=== PATIENT | female | born 1990 | race Caucasian/White ===

== ENCOUNTER 2018-12-14 17:24 | Emergency (ER) | payer MEDICAID, OTHER ==
[~2018-12-14] VITALS: Ht 157.5 cm; Wt 81.8 kg
[2018-12-14 19:11] LABS: BASOPHILS % (AUTO) 0.4 % (0.0-2.0); EOSINOPHILS % (AUTO) 1.9 % (1.0-6.0); LYMPHOCYTES # (AUTO) 2.2 K/uL (1.0-4.8); LYMPHOCYTES % (AUTO) 36.7 % (22.0-44.0); MEAN CORPUSCULAR HEMOGLOBIN 31.1 pg (26.0-34.0); MEAN CORPUSCULAR HGB CONC 34.1 G/dL (31.0-37.0); MEAN CORPUSCULAR VOLUME 91 fL (80-100); MONOCYTES # (AUTO) 0.3 K/uL (0.1-1.0); MONOCYTES % (AUTO) 5.4 % (2.0-9.0); NEUTROPHILS # (AUTO) 3.4 K/uL (1.8-7.7); NEUTROPHILS % (AUTO) 55.6 % (40.0-70.0); PLATELET COUNT (AUTO) 161 K/uL (150-450); RED BLOOD CELL COUNT(AUTO) 4.49 MIL/uL (4.00-5.20); RED CELL DISTRIBUTION WIDTH 13.2 % (11.5-14.5)
[2018-12-14] MEDS ORDERED: ACETAMINOPHEN 500 MG TABLET PO ONE (20:00)
[2018-12-14] MEDS ORDERED: ONDANSETRON HCL 4 MG TABLET PO ONE (20:00)
[2018-12-14 20:09] VITALS: BP 118/65
[2018-12-14 20:40] LABS: APPEARANCE,URINE CLOUDY (CLEAR); GLUCOSE, URINE (UA) NEGATIVE (NEGATIVE); KETONES,URINE 40 mg/dL (NEGATIVE); LEUKOCYTE ESTERASE ,URINE SMALL (NEGATIVE); NITRATE,URINE NEGATIVE (NEGATIVE); OCCULT BLOOD,URINE LARGE (NEGATIVE); PROTEIN,URINE POS 1+ (NEGATIVE)
[2018-12-14 20:53] LABS: BILIRUBIN,URINE PRELIM. POSITIVE (NEGATIVE)
[2018-12-14 21:01] LABS: BACTERIA,URINE Rare /HPF (None Seen); SQUAMOUS EPITHELIAL CELL,UR Moderate /LPF (None Seen)
== END 2018-12-14 20:14 | disposition home or self-care (01) ==
LOC: EMS 17:25
DX: N93.9 Abnormal uterine and vaginal bleeding, unspecified (principal); N94.6 Dysmenorrhea, unspecified
CPT/HCPCS: 87086

== ENCOUNTER 2024-02-17 08:51 | Emergency (ER) | payer OTHER ==
[~2024-02-17] VITALS: Ht 165.1 cm; Wt 84.1 kg
[2024-02-17 08:54] VITALS: TEMP 98
[2024-02-17] MEDS ORDERED: METH-812 PO (10:20)
[2024-02-17] MEDS ORDERED: LIDO700A15 TP (10:20)
[2024-02-17 10:45] VITALS: BP 128/76; PULSE 72; RESP 16
== END 2024-02-17 10:46 | disposition home or self-care (01) ==
LOC: EMS 09:06
DX: S39.012A Strain of muscle, fascia and tendon of lower back, initial encounter (principal); Z88.6 Allergy status to analgesic agent; X58.XXXA Exposure to other specified factors, initial encounter; Y93.89 Activity, other specified; Y92.89 Other specified places as the place of occurrence of the external cause; Y99.8 Other external cause status
CPT/HCPCS: 99283; Z7502

== ENCOUNTER 2025-06-02 16:26 | Emergency (ER) | payer OTHER ==
[~2025-06-02] VITALS: Ht 170.2 cm; Wt 89.5 kg
[~2025-06-02 16:26] MED LIST: LIDO-57 TP; METH-812 PO
[2025-06-02] MEDS ORDERED: BUSP5TAB20 PO (16:36)
[2025-06-02 17:04] LABS: PLATELET COUNT (AUTO) 191 K/uL (150-450); RED BLOOD CELL COUNT(AUTO) 4.48 MIL/uL (4.00-5.20); RED CELL DISTRIBUTION WIDTH 13.2 % (11.5-14.5); WHITE BLOOD COUNT (AUTO) 6.8 K/uL (4.5-11.0)
[2025-06-02 17:11] LABS: CALCIUM, TOTAL 8.8 mg/dL (8.8-10.5); CREATININE 0.65 mg/dL (0.60-1.30); GLOMERULAR FILTR. RATE CALC > 60 mL/min (>60); GLUCOSE,RANDOM 134 mg/dL (70-110); SODIUM SERUM 143 mmol/L (136-145); UREA NITROGEN, BLOOD 8 mg/dL (7-18)
[2025-06-02 17:25] LABS: TROPONIN I-HIGH SENSITIVITY 4 ng/L (<51)
[2025-06-02] MEDS: POTASSIUM CHLORIDE 20 MEQ ER TABLET PO ONE (19:07)
[2025-06-02 20:23] VITALS: BP 128/75; PULSE 71; RESP 22; TEMP 97.3; O2SAT 97
== END 2025-06-02 20:31 | disposition home or self-care (01) ==
LOC: EMS 16:26
DX: F41.9 Anxiety disorder, unspecified (principal); R00.2 Palpitations; E87.6 Hypokalemia; R51.9 Headache, unspecified; Z88.6 Allergy status to analgesic agent; Z79.899 Other long term (current) drug therapy
CPT/HCPCS: 71045; 80048; 84443; 84484; 84702; 85025; 93005; 99285; 36415-L1; 36415-TC